=== PATIENT | female | born 1965 | race Caucasian/White ===

== ENCOUNTER 2017-12-26 13:23 | Emergency (ER) | payer MEDICAID, SELFPAY ==
[2017-12-26 13:25] VITALS: BP 148/95; PULSE 74; RESP 18; TEMP 36.6; O2SAT 98; BMI 27.8
[2017-12-26 14:45] VITALS: BP 141/92; PULSE 70; RESP 18; O2SAT 97
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
[2017-12-26] MEDS: Naproxen 500 MG Tablet PO (15:29)
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
[2017-12-26 16:11] VITALS: BP 132/87; PULSE 71; RESP 16; O2SAT 97
== END 2017-12-26 16:23 | disposition home or self-care (01) ==
PROVIDERS: Emergency Provider Emergency Medicine; Family Provider Family Medicine; PCP Family Medicine
DX: S06.0X0A Concussion without loss of consciousness, initial encounter (principal); S20.211A Contusion of right front wall of thorax, initial encounter; S00.03XA Contusion of scalp, initial encounter; M54.5 Low back pain; Y04.2XXA Assault by strike against or bumped into by another person, initial encounter; Y93.89 Activity, other specified; Y92.89 Other specified places as the place of occurrence of the external cause; Y99.8 Other external cause status
CPT/HCPCS: 70450; 71101; 72100; 72125; 99283

== ENCOUNTER 2018-02-26 11:41 | Day surgery (SDC) | payer MEDICAID, SELFPAY ==
[2018-02-26] VITALS (8 sets, daily range): BP systolic 115–127; BP diastolic 79–84; PULSE 61–83; RESP 14–16; TEMP 35.6–36.2; O2SAT 97–100; BMI 26.2
[2018-02-26] MEDS: Fleet Enema 1 ML RECTAL (12:00)
--- NOTE | 2018-02-26 13:00 | COLBX_PTH ---
PATIENT: CHEL MA LOC: [facility] [place] U#:[id number] AGE/SX: 52/F ROOM: RE02/26/[address]: Dr. Danya Stack MD : [id number] BED: DIS: 02/26/2018 SPEC #: [id number] RECD: 02/27/18 09:14 STATUS: NABEEL IAIN #: [id number] ROSS: 02/26/18 13:[address]: Danya Stack DEPT: SURGICAL PATHOLOGY RECD BY: Zachary Erwin ENTERED: 02/27/18 11:57 SP TYPE: COLON BX OTHR DR: Dr. Denton Johnson III, MD Tissues: Anus, NOS Procedures: Surgery Specimen Level III HEADER OPERATION: EUA; hemorrhoidectomy PRE-OP DIAGNOSIS: Anal pain TISSUE SUBMITTED: Anal canal MICROSCOPIC DIAGNOSIS Anal canal, biopsy: A piece of squamous mucosa with changes consistent with verrucous keratosis and extensive hyperkeratosis. A few dilated blood vessels, suggestive of hemorrhoid. ETELVINA:gamaliel 02/28/18 MICROSCOPIC DESCRIPTION Slides are reviewed. GROSS DESCRIPTION Received in fixative is one container labeled with the patient's name and designated anal canal biopsy. The specimen consists of a piece of contreras-white soft tissue measuring 0.5 x 0.4 x 0.3 cm. The entire specimen is submitted in one cassette. / ETELVINA:gamaliel 02/27/18 TC:5 CPT: 12279
[2018-02-26] MEDS: Ondansetron 4 MG/2 ML Vial (13:27)
[2018-02-26] MEDS: Bupiv/Epi 0.5% Mpf 30 ML Vial (14:01)
--- NOTE | 2018-02-26 14:09 | OP.PN_ITS ---
Immediate Post-Op Note Date of Procedure: 02/26/18 Primary Surgeon/Physician: Danya Stack escalator operator: NOT,DEFINED Pre-Operative Diagnosis: anal pain Post-Operative Diagnosis: same Surgery/Procedure Performed:: examination under anesthesia, anal canal biopsy Description of Surgical Findings:: posterior aspect - area of leukoplakia - incised Estimated Blood Loss: < 1 Specimen's removed: anal canal lesion - posterior Type of Anesthesia:: General ASA Class: ASA2 Mod Systematic Disease - Admit VTE Documentation VTE Present on Admission: Yes VTE Mechan Device Prophylaxis: SCD's
--- NOTE | 2018-02-26 14:14 | DCINST_ITS ---
Discharge Diet: No Restrictions Discharge Activity: Return to Normal Activity, May not drive while taking narcotic pain medications. Additional Activity Instructions:: avoid using any enemas or suppositories for a week. may soak in tub for comfort. avoid use of toilet paper for about a week - use moist towellettes instead Call your doctor if your incision/area has: Continuous Slow Oozing Call your doctor if you observe: Fever of 101 or Higher Allergies/Adverse Reactions: Allergies lisinopril Allergy (Verified 02/19/18 15:38) Swelling venom-honey bee [bee venom (honey bee)] Allergy (Verified 02/19/18 15:38) Anaphylaxis Medications to take at Discharge Hydrochlorothiazide 25 mg PO DAILY 06/04/13 Vitamin B Complex 1 cap PO DAILY 06/04/13 Cholecalciferol (VIT D3) [Vitamin D] 5,000 unit PO DAILY 09/02/15 Loratadine [Claritin] 10 mg PO DAILY 09/02/15 Meloxicam [Meloxicam] 15 mg PO DAILY 09/02/15 Potassium (Otc) [Potassium Otc] 99 mg PO DAILY 09/02/15 Sumatriptan Succinate [Imitrex] 25 mg PO DAILY PRN PRN 09/02/15 Cyclobenzaprine [Flexeril] 10 mg PO TID PRN #20 tablet 12/26/17 Amlodipine [Norvasc] 5 mg PO DAILY 02/19/18 Biotin 5,000 mcg PO DAILY 02/19/18 Black Cohosh 540 mg PO DAILY 02/19/18 Multivitamin [Multiple Vitamins] 1 each PO DAILY 02/19/18 Hydrocodone Bitart/Apap 5-325 [Belfry 5MG-325MG] 1 tab PO Q6H PRN PRN 2 Days #5 tab 02/26/18 The following prescriptions were given: Hydrocodone Bitart/Apap 5-325 [Belfry 5MG-325MG] 1 tab PO Q6H PRN PRN 2 Days #5 tab PRN Reason: Pain Primary Care Physician: Denton Johnson III, MD [Primary Care Provider] - Test Results: Test results from this visit will be discussed in further detail at your follow- up appointment, if applicable. Please Follow Up With: Danya Stack MD - call When: to be seen in a week, please call for date and time, thanks
--- NOTE | 2018-02-28 08:25 | OP.PCM_ITS ---
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 Appropriate time out protocol was followed. Patient was then placed under general endotracheal anesthesia. She was then placed in the prone jacknife position with appropriate padding to all pressure areas. The perianal and anal canal was then prepped with betadyne surgical preparation. Appropriate surgical sterile drapes were placed. The rectum was then irrigated with betadyne and then irrigated with normal saline. A speculum was inserted into the anus. Careful examination was then done to the anal canal. There appeared to be a dense area posteriorly - < 0.5 cm squared in area. The remainder of the anal canal mucosa appeared normal. Generous swabs of diluted acetic acid was applied to the anal canal mucosa in order to detect any abnormal lesions. An area of white plaque like tissue was noted at the posterior most aspect. This was an area of less than 0.5 cm squared. This was excised using sharp dissection and the tissue was forwarded to pathology for analysis. Hemostasis was controlled by pressure. The skin edges were reapproximated in a simple interrupted fashion. No active bleeding was noted. Thrombin gelfoarm with dubicaine was then rolled in the anal canal. The patient tolerated the procedure well and was brought to the Recovery Room in stable condition. - Complications none noted - Admit VTE Documentation VTE Present on Admission: Yes VTE Mechan Device Prophylaxis: SCD's
== END 2018-02-26 15:46 | disposition home or self-care (01) ==
LOC: SDC 11:42 → AC 11:42
PROVIDERS: Family Provider Family Medicine; PCP Family Medicine; Visit Provider Surgery
PROC: (CPT 46606; principal; 2018-02-26 12:45)
DX: K62.89 Other specified diseases of anus and rectum (principal); J45.909 Unspecified asthma, uncomplicated; I10 Essential (primary) hypertension; F32.9 Major depressive disorder, single episode, unspecified; Z79.51 Long term (current) use of inhaled steroids; Z79.899 Other long term (current) drug therapy
CPT/HCPCS: 46606; 88304; J7120; J2405

== ENCOUNTER 2018-06-21 21:56 | Emergency (ER) | payer MEDICAID, SELFPAY ==
[2018-06-21 21:58] VITALS: BP 125/69; PULSE 79; RESP 16; TEMP 36.4; O2SAT 98; BMI 26.5
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
--- NOTE | 2018-06-21 23:00 | ED.DCSUM_ITS ---
- ER Visit Summary Date of Service: 06/21/18 Chief Complaint: Injury to left side of face, hand and knee status post fall yesterday History of Present Illness: The patient is a 52 F who presents because of worsening pain left hand after injury. He is on no anticoagulant. There is no loss of conscious. She denies neck pain at the time of the injury. Now, is a mild stiffness. She denies paresthesia, anesthesia motor weakness right upper extremity or lower extreme is. She combines of numbness tingling in her left long and ring finger. She denies chest pain, back pain, shoulder pain, elbow pain or wrist pain. She denies right knee pain. She is concerned about the left knee since she has had 2 prior surgeries. She denies decreased hearing or ringing or ears. She denies malalignment of her teeth. Physical Examination: Vital signs noted Patient has an abrasion left maxillary region. Pupils equal round reactive. Extra muscle intact. No findings of basal skull fracture. Trachea midline. Heart is regular. No respiratory distress. Examination of the right hand reveals pain palpation over the third and fourth metacarpal bone. There is swelling with delayed capillary refill of the left long and ring finger. There is no subungual hematoma noted. Axillary, median, radial and ulnar function intact. Examination of left knee reveals minimal swelling. There is pain abrasion of the patella. There is no effusion. There is full extension and flexion. Is no laxity varus valgus stress testing. There is negative Denzel's test. Negative modified Addie's test. GCS is 15. Patient is alert and oriented ?3. Motor is 5/5. Sensation is intact. DTRs are symmetric without clonus or Babinski. Cranial nerves II through XII are intact. Finger to nose to finger was performed adequately. Test Results: Three-view x-ray of the hand was obtained and reveals soft tissue swelling of the left long and ring finger. Rings are noted and will need to be removed. There is no evidence of fracture. 4 view x-ray of the left knee was obtained with no evidence of fracture, effusion, subluxation or dislocation. There is no foreign body noted. Emergency Department Course and Treatment: Rest, ice, elevation and anti- inflammatories since there is no contraindication Treatment Plan: Appropriate home-going instructions Disposition: Discharge to home Impression: 1. Facial abrasion secondary to fall initial encounter 2. Left hand contusion initial encounter secondary to fall 3. Left patella contusion initial encounter This note was generated with [employer] dictation software. It may contain incorrect words, spelling, and punctuation that were not noted in review of the chart prior to signing ED Disposition - Plan for ED Patient: Disposition: Home or Assisted Living Chief Complaint: Fall Instructions: ED Abrasion, ED Contusion Hand, ED Contusion Lower Ext Referrals: Denton Johnson III, MD [Primary Care Provider] - 1 Week if not improving
[2018-06-21] MEDS: Naproxen 250 MG Tablet 500 MG PO (23:29)
[2018-06-21 23:30] VITALS: BP 132/80; PULSE 62; RESP 16; O2SAT 98
== END 2018-06-21 23:30 | disposition home or self-care (01) ==
PROVIDERS: Emergency Provider Emergency Medicine; Family Provider Family Medicine; PCP Family Medicine
DX: S80.02XA Contusion of left knee, initial encounter (principal); S60.222A Contusion of left hand, initial encounter; S00.81XA Abrasion of other part of head, initial encounter; I10 Essential (primary) hypertension; Z79.899 Other long term (current) drug therapy; W19.XXXA Unspecified fall, initial encounter; Y93.89 Activity, other specified; Y92.89 Other specified places as the place of occurrence of the external cause; Y99.8 Other external cause status
CPT/HCPCS: 73130; 73564; 99283

== ENCOUNTER → 2021-03-18 17:11 | Outpatient (CLI) | payer MEDICAID, SELFPAY ==
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
== END ==
PROVIDERS: PCP Family Medicine
DX: R41.3 Other amnesia (principal)
CPT/HCPCS: 70551

== ENCOUNTER 2022-11-22 09:49 | Emergency (ER) | payer MEDICAID, SELFPAY ==
[2022-11-22 09:49] VITALS: BP 134/83; PULSE 64; RESP 18; TEMP 36.6; O2SAT 100; BMI 29.6
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
--- NOTE | 2022-11-22 10:06 | EDS_ITS ---
HPI History of Present Illness Chief Complaint: Back Detail of Chief Complaint: Back and right thumb injury Informant: patient Narrative Narrative: Patient presents the emergency department complaint of back pain after sustaining a fall 3 nights ago. Patient says she was coming down the steps when her slipper slipped and she fell directly onto the left side of her back on the steps. Patient has pain with movement. Today she was playing with her dog and accidentally avulsed the right thumbnail off of the nailbed. Patient states he was hanging by just some skin and she could have pushed it back down. Patient denies hematuria. She denies pain down the legs. She denies loss of bowel or bladder function. PFSH PFSH Home Medications hydrochlorothiazide 25 mg tablet 25 mg PO DAILY 06/04/13 [History Last Taken Unknown] vitamin B complex 1 cap PO DAILY 06/04/13 [History Last Taken Unknown] Potassium (Otc) [Potassium Otc] 99 mg PO DAILY 09/02/15 [History Last Taken Unknown] loratadine 10 mg tablet (Allergy Relief (loratadine)) 10 mg PO DAILY 09/02/15 [History Last Taken Unknown] meloxicam 15 mg tablet 15 mg PO DAILY 09/02/15 [History Last Taken Unknown] sumatriptan succinate 25 mg tablet (Imitrex) 25 mg PO DAILY PRN PRN MIGRAINES 09/02/15 [History Last Taken Unknown] amlodipine 5 mg tablet 5 mg PO DAILY 02/19/18 [History Last Taken Unknown] biotin 2,500 mcg capsule 5,000 mcg PO DAILY 02/19/18 [History Last Taken Unknown] multivitamin (Multiple Vitamins tablet) 1 ea PO DAILY 02/19/18 [History Last Taken Unknown] hydrocodone-acetaminophen 5-325mg 5mg-325mg 1 tab PO Q4H PRN PRN Pain 2 days #10 TABLETS 11/22/22 [Rx Last Taken Unknown] Allergy/AdvReac Type Severity Reaction Status Date / Time lisinopril Allergy Swelling Verified 11/22/22 09:49 venom-honey bee Allergy Anaphylaxis Verified 11/22/22 09:49 [bee venom (honey bee)] Social History Smoking Status: Never smoker ROS ROS ED Review of Systems ROS Unobtainable: other Constitutional Constitutional ED: Reports lethargy; Denies chills, fever(s), sweats or weight loss Eyes Eyes: Denies blurry vision, change in vision or diplopia ENT ENT ED: Denies rhinorrhea or sore throat Cardiovascular Cardiovascular: Denies chest pain, orthopnea or racing heartbeat Respiratory/Chest Respiratory/Chest: Denies cough, dyspnea, dyspnea on exertion, orthopnea or sputum Gastrointestinal Gastrointestinal: Denies abdominal pain, diarrhea, nausea or vomiting Genitourinary Genitourinary ED: Denies dysuria, hematuria or urinary frequency Musculoskeletal Musculoskeletal: Reports back pain and other Details: Right thumb nail avulsion ; Denies arthralgias, myalgias or neck pain Integumentary Denies abscess, Abrasions or rash Neurologic Neurologic: Denies headache(s) or weakness Psychiatric Psychiatric: Denies anxiety, depression or suicidal thoughts Endocrine Endocrinology: Denies polydipsia, polyphagia or polyuria Hematologic/Lymphatic Hematologic/Lymphatic: Denies easy bleeding, easy bruising or lymphadenopathy Allergic/Immunologic Allergic/Immunologic ED: Denies mouth swelling, tongue swelling or urticaria EXAM Physical Exam Const Vital Signs: 11/22/22 09:49 Temperature 97.8 F Temperature Source Temporal Pulse Rate 64 Respiratory Rate 18 Blood Pressure 134/83 H Blood Pressure Mean 100 Pulse Ox 100 Oxygen Delivery Method Room Air Positive well nourished and well developed General Appearance ED: well developed and NAD HEENT Reports TM's clear and moist mucous membranes normocephalic and atraumatic; Negative for trauma or tenderness Tympanic Membrane ED: Yes TM's clear Eyes PERRL and EOMs intact bilaterally General Eye ED: Negative for pale conjunctiva or scleral icterus Neck no lymphadenopathy, supple and no JVD General: Negative for tenderness Chest Wall inspection of chest normal and palpation of chest normal Chest: Negative for tenderness Resp normal respiratory effort and clear to auscultation bilaterally Effort and Inspection: Negative for respiratory distress or pain with movement Auscultation: Negative for rhonchi, wheezes or diminished lung sounds Cardio regular rate, regular rhythm, S1 normal heart sound, S2 normal heart sound and no murmurs Peripheral Pulses: pulses 2+ throughout GI normal to inspection, nondistended, normoactive bowel sounds, soft to palpation, non-tender, non-distended and no masses Back/Spine no CVA tenderness Back/Spine Narrative: Patient with tenderness diffusely over the lumbar spine. There is an area of linear ecchymosis over the left lateral paraspinal musculature. She has CVA tenderness on the left. Negative straight leg raises. Deep tendon reflexes are plus 2 out of 4 bilaterally at the patella and Achilles. Patient has normal L5 extension bilaterally. She is neurovascular intact. Extremity Extremity Narrative: Right thumb-patient does have a small amount of blood from underneath the fingernail of the thumb. I was able to easily lift the nail off the nail bed. I offered to perform a digital block versus just removing the nail from underneath the nail fold to evaluate the nailbed for lacerations. Patient wanted me to just go ahead and remove the nail without any anesthesia. With gentle traction I was able to easily remove the nail from the nailbed from u nderneath the nail fold and inspect the nailbed. There is no evidence of nailbed laceration. The nail was cleansed in the nailbed. The nail was then replaced underneath the nail fold and clean dressing was applied. Patient has no bony tenderness over the distal phalanx of the thumb. General Extremety ED: Negative for edema General Extremity: Negative for edema Neuro oriented x3, CN's II-XII intact bilaterally, no sensory deficits noted and gait normal Sensorium / Orientation: awake, alert, oriented to person, oriented to place and oriented to time Motor Exam: strength 5/5 throughout and strength abnormal Psych mental status grossly normal Skin no rashes or lesions noted and no wounds MDM MDM MDM Narrative Medical decision making narrative: IV Hep-Lock established on arrival. Patient had a CT scan of the abdomen pelvis with IV contrast to rule out intra-abdominal organ injury and lumbar spine fracture. Scan was essentially unremarkable other than she incidentally had gallstones in her gallbladder. Patient did not require imaging of her nail as she had no bony tenderness on exam. Patient will be given a prescription for few [place] for pain. She is advised to follow-up with her primary care physician 5 to 7 days. Radiography Diagnostic Testing: Clinical Impression(s) from Imaging Studies Abdomen/Pelvis CT 11/22/22 10:05 IMPRESSION: Fatty infiltration of the liver. Multiple gallstones. Sigmoid diverticulosis. Electronically Signed: Rolo Esquivel MD at 12:03 EDT , Discharge Plan Triage Chief Complaint: Back ED Provider: Aishwarya Lewis Dx/Rx/DC Orders Clinical Impression: Back contusion, Avulsed fingernail Instructions: ED Back Contusion, ED Detached Fingernail or Toenail Prescriptions: New hydrocodone-acetaminophen [hydrocodone-acetaminophen] 5-325 mg tablet 1 tab PO Q4H PRN PRN (Reason: Pain) 2 Days Qty: 10 0RF No Action hydrochlorothiazide 25 MG tablet 25 mg PO DAILY vitamin B complex 1 EACH capsule 1 cap PO DAILY meloxicam 15 MG tablet 15 mg PO DAILY Label Comments: sumatriptan succinate [Imitrex] 25 MG tablet 25 mg PO DAILY PRN PRN (Reason: MIGRAINES) loratadine [Allergy Relief (loratadine)] 10 MG tablet 10 mg PO DAILY Potassium (Otc) [Potassium Otc] 99 MG tablet 99 mg PO DAILY multivitamin [Multiple Vitamins] 1 EACH tablet 1 ea PO DAILY amlodipine 5 MG tablet 5 mg PO DAILY biotin 2,500 MCG capsule 5,000 mcg PO DAILY Primary Care Provider: Ranjeet Jacobsen Referrals: Ranjeet Jacobsen MD [Primary Care Provider] - 5-7 Days Disposition Disposition: Home, Self Care
== END 2022-11-22 12:51 | disposition home or self-care (01) ==
PROVIDERS: Emergency Provider Emergency Medicine; PCP Family Medicine; Visit Provider Emergency Medicine
DX: S20.229A Contusion of unspecified back wall of thorax, initial encounter (principal); S61.308A Unspecified open wound of other finger with damage to nail, initial encounter; W10.9XXA Fall (on) (from) unspecified stairs and steps, initial encounter
CPT/HCPCS: 11730; 74177; 99283; Q9967; A4216

== ENCOUNTER 2024-06-15 21:52 | Emergency (ER) | payer SELFPAY ==
[2024-06-15 21:52] VITALS: BP 177/93; PULSE 74; RESP 18; TEMP 36.8; O2SAT 99; BMI 30.4
--- NOTE | 2024-06-15 22:12 | EX.ED.VIS.EY ---
HPI History of Present Illness Chief Complaint: Eye Problem Informant: patient Onset/Context/Timing Location: Left Eye Onset: Today Context: Sudden Onset Timing: Continuous Worsened by: Light, opening her eye Relieved by: Nothing Associated Symptoms Associated Symptoms - Eyes: Burning, Drainage (Watery), Foreign body sensation, Pain, Photophobia and Redness; Negative for Crusting, Eyelid swelling, Itching or Matting History of injury: Yes and Direct trauma Visual correction: Glasses Narrative Narrative: Patient presents with eye injury that occurred today. Patient was helping a friend put up with [employer] when one of the branches hit her in her left eye. Patient admits to some increasing pain. Patient admits to a foreign body sensation. Patient admits to some redness and burning. Patient admits to watery drainage. Patient also admits to some photophobia. Patient states she normally wears glasses but did not have them on at the time of the injury. Patient admits to some blurry vision out of her left eye. [facility] Medical History (Updated 06/15/24 @ 22:[address] Surjit Winkler, ) Eye injury Medical History no medical history no medical history Home Medications ?Medication ?Instructions ?Recorded ?Last Taken ?Type hydrochlorothiazide 25 mg tablet 25 mg PO DAILY 06/04/13 Unknown History vitamin B complex 1 cap PO DAILY 06/04/13 Unknown History Potassium (Otc) [Potassium Otc] 99 mg PO DAILY 09/02/15 Unknown History loratadine 10 mg tablet (Allergy 10 mg PO DAILY 09/02/15 Unknown History Relief (loratadine)) meloxicam 15 mg tablet 15 mg PO DAILY 09/02/15 Unknown History sumatriptan succinate 25 mg tablet 25 mg PO DAILY PRN PRN MIGRAINES 09/02/15 Unknown History (Imitrex) amlodipine 5 mg tablet 5 mg PO DAILY 02/19/18 Unknown History biotin 2,500 mcg capsule 5,000 mcg PO DAILY 02/19/18 Unknown History multivitamin (Multiple Vitamins 1 ea PO DAILY 02/19/18 Unknown History tablet) hydrocodone-acetaminophen 5-325mg 1 tab PO Q4H PRN PRN Pain 2 days 11/22/22 Unknown Rx 5mg-325mg #10 TABLETS Allergy/AdvReac Type Severity Reaction Status Date / Time lisinopril Allergy Swelling Verified 06/15/24 21:53 venom-honey bee (bee venom Allergy Anaphylaxis Verified 06/15/24 21:53 (honey bee)) Surgical History (Updated 06/15/24 @ 22:[address] Surjit Winkler DO) Hx of shoulder surgery Social History Smoking Status: Never smoker ROS ROS ED Constitutional Constitutional ED: Denies chills or fever(s) Eyes Eyes: Reports blurry vision; Denies change in vision ENT ENT ED: Denies rhinorrhea or sore throat Cardiovascular Cardiovascular: Denies chest pain or palpitations Respiratory/Chest Respiratory/Chest: Denies cough or dyspnea Gastrointestinal Gastrointestinal: Denies nausea or vomiting Genitourinary Genitourinary ED: Denies dysuria or hematuria Musculoskeletal Musculoskeletal: Denies back pain or neck pain Integumentary Denies abscess or rash Neurologic Neurologic: Reports headache(s); Denies weakness Allergic/Immunologic Allergic/Immunologic ED: Denies mouth swelling or urticaria EXAM Physical Exam Const Vital Signs: 06/15/24 21:52 Temperature 98.2 F Temperature Source Oral Pulse Rate 74 Respiratory Rate 18 Blood Pressure 177/93 H Blood Pressure Mean 121 Pulse Ox 99 Oxygen Delivery Method Room Air Positive well nourished and well developed General Appearance ED: well developed and NAD HEENT atraumatic Eyes Eyes Narrative: Pupils are equal, round, reactive to light bilaterally. Extraocular muscles are intact. Conjunctiva was injected on the left. Tetracaine and fluorescein dye was applied. There is a large corneal abrasion over the lateral aspect of the left cornea from the 2 o'clock position to the 6 o'clock position. There is a small foreign body noted. This was removed with a moistened Q-tip. Anterior chamber was clear. There is no hyphema. There is no cell or flare. Patient was unable to tolerate funduscopic examination. Neck supple and no JVD Neuro oriented x3, CN's II-XII intact bilaterally, moves all extremities and no sensory deficits noted Sensorium / Orientation: alert Motor Exam: strength 5/5 throughout MDM MDM MDM Narrative Medical decision making narrative: Patient was advised that her pain is from a corneal abrasion. Patient was given erythromycin ophthalmic ointment. Patient was instructed to apply this 4 times daily. Patient was instructed to follow-up with her primary care physician in 3 to 5 days. Patient was also given a referral for ophthalmology. Patient was instructed to return if worse in any way. Patient understood and was agreeable with the plan. All questions were answered. Discharge Plan Triage Chief Complaint: Eye Problem ED Provider: Surjit Winkler Dx/Rx/DC Orders Clinical Impression: Corneal abrasion, left, Acute foreign body of left cornea Instructions: ED Corneal Abrasion, ED Corneal Foreign Body, Removed Prescriptions: No Action hydrochlorothiazide 25 MG tablet 25 mg PO DAILY vitamin B complex 1 EACH capsule 1 cap PO DAILY meloxicam 15 MG tablet 15 mg PO DAILY Patient Comments: sumatriptan succinate [Imitrex] 25 MG tablet 25 mg PO DAILY PRN PRN (Reason: MIGRAINES) loratadine [Allergy Relief (loratadine)] 10 MG tablet 10 mg PO DAILY Potassium (Otc) [Potassium Otc] 99 MG tablet 99 mg PO DAILY multivitamin [Multiple Vitamins] 1 EACH tablet 1 ea PO DAILY amlodipine 5 MG tablet 5 mg PO DAILY biotin 2,500 MCG capsule 5,000 mcg PO DAILY hydrocodone-acetaminophen [hydrocodone-acetaminophen] 5-325 mg tablet 1 tab PO Q4H PRN PRN (Reason: Pain) 2 Days Qty: 10 0RF Primary Care Provider: Ranjeet Jacobsen Referrals: John Orellana MD [Med Staff - Active Staff] - 2 Days aRnjeet Jacobsen MD [Primary Care Provider] - 2 Days Print Language: Ukrainian Disposition Disposition: Home, Self Care Discharge Date/Time: 06/15/24 23:05
[2024-06-15] MEDS: Fluorescein 1 MG STRIP 1 STRIP OPHTHALMIC (22:21)
[2024-06-15] MEDS: Tetracaine 0.5% Ophthalmic Bottle 1 DRP OPHTHALMIC (22:22)
[2024-06-15] MEDS: Erythromycin Ophthalmic (NSY) 1 GM OPTH.TUBE 1 APPLIC LEFT EYE (23:03)
== END 2024-06-15 23:05 | disposition home or self-care (01) ==
PROVIDERS: Emergency Provider Emergency Medicine; PCP Family Medicine; Visit Provider Emergency Medicine
DX: T15.02XA Foreign body in cornea, left eye, initial encounter (principal); H53.8 Other visual disturbances; H53.149 Visual discomfort, unspecified; R51.9 Headache, unspecified; W22.8XXA Striking against or struck by other objects, initial encounter
CPT/HCPCS: 99282